=== PATIENT | male | born 1960 | race Caucasian/White ===

== ENCOUNTER 2017-11-08 05:38 | Day surgery (SDC) | payer MEDICAID ==
[2017-11-02 15:40] LABS: BASOPHILS # (AUTO) 0.1 X10'3 (0-0.2); BASOPHILS % (AUTO) 0.8 % (0-1); EOSINOPHILS # (AUTO) 0.2 X10'3 (0-0.9); LYMPHOCYTES # (AUTO) 2.2 X10'3 (1.1-4.8); LYMPHOCYTES % (AUTO) 29.7 % (21-51); MEAN CORPUSCULAR HEMOGLOBIN 32.4 PG (27.0-31.0); MEAN CORPUSCULAR HGB CONC 34.2 % (33.0-36.5); MEAN CORPUSCULAR VOLUME 94.8 FL (78-98); MEAN PLATELET VOLUME 7.7 FL (7.4-10.4); MONOCYTES # (AUTO) 0.9 X10'3 (0-0.9); MONOCYTES % (AUTO) 12.7 % (2-12); NEUTROPHILS % (AUTO) 53.8 % (42-75); PRE OP HEMATOCRIT 41.1 % (42.0-52.0); PRE OP HEMOGLOBIN 14.1 g/dL (14.0-17.9); PRE OP PLATELET COUNT 203 X10'3 (140-440); RED BLOOD COUNT 4.33 X10'6 (4.70-6.10); RED CELL DISTRIBUTION WIDTH 14.5 % (11.5-14.5)
[2017-11-02 15:43] LABS: CLARITY,URINE CLEAR (Clear); COLOR,URINE YELLOW (Yellow); GLUCOSE, URINE NEGATIVE (Neg); KETONES,URINE NEGATIVE (Neg); LEUKOCYTE ESTERASE ,URINE NEGATIVE (Neg); NITRITES, URINE NEGATIVE (Neg); OCCULT BLOOD,URINE TRACE-INTACT (Neg); PROTEIN,URINE NEGATIVE (Neg)
[2017-11-02 15:44] LABS: UA COLLECTION TYPE CLN CATCH MIDSTREAM
[2017-11-02 16:00] LABS: WBC,URINE 0-4 /HPF (0-4)
[2017-11-02 16:01] LABS: BACTERIA,URINE NONE SEEN /HPF (Neg); RBC,URINE NONE SEEN /HPF (0-2); SQUAMOUS EPITHELIAL CELL,UR FEW /LPF (FEW)
[2017-11-02 16:02] LABS: ALBUMIN 3.5 G/DL (3.4-5.0); ALKALINE PHOSPHATASE 71 IU/L (46-116); BLOOD UREA NITROGEN 23 MG/DL (7-18); BUN/CREATININE RATIO 19.3 (5.4-32.0); CHLORIDE 108 MMOL/L (99-107); CREATININE 1.19 MG/DL (0.60-1.10); PRE OP ALT 25 U/L (30-65); PRE OP ANION GAP 6 (8-16); PRE OP AST 15 U/L (10-37); PRE OP BILIRUB, TOTAL 0.3 MG/DL (0.0-1.0); PRE OP GLUCOSE 95 MG/DL (70-104); PRE OP POTASSIUM 4.4 MMOL/L (3.4-5.1); PRE OP SODIUM 142 MMOL/L (135-145); TOTAL CARBON DIOXIDE 28.2 MMOL/L (24-32); TOTAL PROTEIN 7.1 G/DL (6.4-8.2); eGFR 63 ML/MIN
[~2017-11-08] VITALS: Ht 182.9 cm; Wt 78.9 kg
[2017-11-08] VITALS (9 sets, daily range): BP systolic 123–160; BP diastolic 65–94
[~2017-11-08 05:38] MED LIST: ACYC-202 PO; ALBU18HF2 INH; LISI40TA4 PO; MARIJUANA INH; albuterol 2.5 MG/3 ML nebule NEB ONE; famotidine 20mg tablet PO ONE; ringers solution, lacted 1,000 ML IV SCH
[2017-11-08] MEDS ORDERED: LIDOcaine 1% (10mg/ml) 2ml vial ONE (05:56)
[2017-11-08] MEDS ORDERED: SODIUM CHLORIDE IV ONE (07:30)
[2017-11-08] MEDS ORDERED: CEFAZOLIN IV ONE (07:30)
[2017-11-08] MEDS ORDERED: sevoflurane 250ml liquid IH ONE (08:20)
[2017-11-08] MEDS ORDERED: fentaNYL/PF 50MCG/1 ML 2ML syringe ONE (08:27)
[2017-11-08] MEDS ORDERED: midazolam 2 mg/2 ml injection ONE (08:27)
[2017-11-08] MEDS ORDERED: LIDOcaine 1%/PF (10mg/ml) 5ml vial ONE (08:29)
[2017-11-08] MEDS ORDERED: propofol inj 20 ML IV ONE (08:29)
[2017-11-08] MEDS ORDERED: BUPIVAcaine/PF 2.5 mg/ml (0.25%) 30ml vial ONE (08:43)
[2017-11-08] MEDS ORDERED: ceFAZolin 1000mg inj ONE (08:43)
[2017-11-08] MEDS ORDERED: ringers solution, lacted 1,000 ML IV SCH (09:08)
[2017-11-08] MEDS ORDERED: proCHLORperazine 10 MG/2 ml inj IV PRN (09:10)
[2017-11-08] MEDS ORDERED: meperidine/PF 25mg/ml syringe IV PRN ×2 (09:10)
[2017-11-08] MEDS ORDERED: ondansetron/PF 4mg/2ml inj IV PRN (09:10)
[2017-11-08] MEDS ORDERED: dexamethasone sod phosphate 4mg/ml inj. ONE (09:24)
[2017-11-08] MEDS: meperidine/PF 25mg/ml syringe IV PRN ×3 (09:42→10:14)
== END 2017-11-08 10:30 | disposition home or self-care (01) ==
LOC: PAS 05:38
PROVIDERS: ATTEND Surgery
DX: K40.90 Unilateral inguinal hernia, without obstruction or gangrene, not specified as recurrent (principal); D17.6 Benign lipomatous neoplasm of spermatic cord; I10 Essential (primary) hypertension; J44.9 Chronic obstructive pulmonary disease, unspecified; F19.10 Other psychoactive substance abuse, uncomplicated; Z98.890 Other specified postprocedural states; Z72.89 Other problems related to lifestyle; Z79.899 Other long term (current) drug therapy
CPT/HCPCS: 36415; 49505; 80053; 81001; 85025; 93005; 94640; A6449; C1781; J0690; J1100; J2001; J2175; J2250; J2405; J2704; J3010; J3490; J7120; A7000

== ENCOUNTER 2024-03-07 11:33 | Outpatient (CLI) | payer MEDICAID ==
[~2024-03-07 11:33] MED LIST changes: +ACYC-129 PO; -ACYC-202 PO; +LISI40TA13 PO; -LISI40TA4 PO; -albuterol 2.5 MG/3 ML nebule NEB ONE; -famotidine 20mg tablet PO ONE; -ringers solution, lacted 1,000 ML IV SCH
== END 2024-03-07 23:59 | disposition home or self-care (01) ==
LOC: RAD 11:33
PROVIDERS: ATTEND Nurse Practitioner
DX: Z53.09 Procedure and treatment not carried out because of other contraindication (principal)

== ENCOUNTER 2024-03-22 13:37 | Outpatient (CLI) | payer MEDICAID ==
[2024-03-14 15:16] LABS: ALBUMIN 4.2 G/DL (3.4-5.0); ANION GAP 6 (8-16); BLOOD UREA NITROGEN 19 MG/DL (7-18); BUN/CREATININE RATIO 15.2 (10.0-20.0); CALCIUM 8.8 MG/DL (8.5-10.1); CHLORIDE 106 MMOL/L (99-107); CREATININE 1.25 MG/DL (0.60-1.10); GLUCOSE 107 MG/DL (70-104); PHOSPHORUS 2.7 MG/DL (2.3-4.5); POTASSIUM 4.5 MMOL/L (3.5-5.1); SODIUM 140 MMOL/L (135-145); TOTAL CARBON DIOXIDE 27.9 MMOL/L (24-32); eGFR 58 ML/MIN
[~2024-03-22 13:37] MED LIST changes: +iohexol 300mg/ml 100ml inj. ONE
== END 2024-03-22 23:59 | disposition home or self-care (01) ==
LOC: RAD 13:37
PROVIDERS: ATTEND Nurse Practitioner
DX: N28.1 Cyst of kidney, acquired (principal); R19.00 Intra-abdominal and pelvic swelling, mass and lump, unspecified site; K42.9 Umbilical hernia without obstruction or gangrene; I70.0 Atherosclerosis of aorta; R10.9 Unspecified abdominal pain
CPT/HCPCS: 36415; 74178; 80069; J3490; Q9967